=== PATIENT | female | born 1970 | race Caucasian/White ===

== ENCOUNTER → 2017-01-12 08:22 | Outpatient (CLI) | payer BC ==
--- NOTE | ~2017-01-12 | HEMODYNAMI ---
PATIENT:REANNA TOPETE MEDICAL RECORD: [id number] : 70 LOCATION:[facility] ADMISSION DATE: 01/12/17 Generatedon:01/12/201710:28 Patient name: REANNA TOPETE Patient #: [id number] SSN: : [birth year] Date of study: 01/12/2017 Page: Of Hemodynamic Procedure Report Patient Data Patient Demographics Procedure consent was obtained First Name: REANNA Gender: Female Last Name: YOSELYN : 1970 Middle Initial: L Age: 46 year(s) Patient #: [id number] Race: Unknown Additional ID: [id number] Contact details [address]: [address] [place] [address] State: [place] City: [place] Zip code: [address] Admission Admission Data Admission Date: 01/12/2017 Admission Time: 8:22 Procedure Procedure Types Cath Procedure Peripheral Cath Diagnostic Procedure Miscellaneous Procedure Description Procedure Date Procedure Date: 01/12/2017 Procedure Start Time: 9:41 Procedure Staff Name Function Jagdish Cedillo MD Performing Physician Jesse Bloom RT Scrub Jesse Bloom RT Monitor Procedure Data Cath Procedure Fluoroscopy Diagnostic fluoroscopy Total fluoroscopy Time: 1.6 time: 1.6 min min Diagnostic fluoroscopy Total fluoroscopy dose: 6 dose: 6 mGy mGy Contrast Material Contrast Material Type Amount (ml) Isovue 300 60 Hemodynamics Rest Pre Cath Intra NCS Post Cath Procedure Log Time Note 9:20:59 Jesse Bloom RT (R) (CV) sent for patient. Start room use. 9:21:07 Time tracking: Regular hours 9:21:16 Patient received from Other to IR Alert and oriented. Tansferred to table in Supine position. 9:21:18 Correct patient and procedure confirmed by team. 9:21:20 Signed procedure consent form obtained from patient. 9:21:21 - 9:21:22 Full Disclosure recording started 9:21:30 Pre-op teaching completed and patient verbalized understanding. 9:21:35 Patient pain scale 0/10 no pain. 9:35:58 Use device set PICC 9:36:01 Sterile Angiographic Pack opened to sterile field. 9:38:56 --------ALL STOP TIME OUT------ 9:38:56 Final Timeout: patient, procedure, and site verified with staff and physician. All members of the team are in agreement. 9:39:03 Sedation plan: Local Anesthetic Lidocaine 9:39:06 Sharps counted by scrub and verified by RMirellaNMirella 9:41:44 Procedure started. 10:24:41 Micropuncture VSI 4FR kit opened to sterile field. 10:24:48 Bag Decanter opened to sterile field. 10:25:11 Procedure ended.(Physican Out) 10:27:52 Fluoroscopy time 01.60 minutes. 10:27:58 Fluoroscopy dose: 6 mGy 10:27:58 Flurop Dose total: 6 10:28:02 Contrast amount:Isovue 300 60ml. 10:28:06 Insertion/operative site no bleeding no hematoma. 10:28:09 Procedure and supply charges have been captured, reviewed, submitted an d are correct. 10:28:10 Post procedure instruction explained to patient.Patient verbalizes understanding. 10:28:14 Report given to Other. 10:28:17 Patient transfered to Other with Ambulatory. Device Usage Item Name Manufacture Quantity Catalog [facility] Lot# / Number Charge Number Stock Stock Serial# Code Sterile Cardinal 1 [id number] Angiographic Health Pack Micropuncture VSI VASCULAR 1 [id number] 5 VSI 4FR kit SOLUTIONS Bag Decanter Microtek 1 [id number] 5 [employer]. Signature Audit [place] Stage Time Signature Unsigned Intra-Procedure 01/12/2017 Jesse 10:28:48 AM [place] RT (R) (CV) Signatures Monitor : Jesse Signature : [place] RT Date : Time : [id number] [place] [address]
== END | disposition home or self-care (01) ==
LOC: D.OPS 08:22 → D.RAD 10:00
DX: M79.605 Pain in left leg (principal)

== ENCOUNTER 2017-01-15 15:06 | Emergency (ER) | payer BC | END 2017-01-15 18:25 | disposition home or self-care (01) | LOC: D.ER 15:06 | DX: M54.16 Radiculopathy, lumbar region (principal); F17.200 Nicotine dependence, unspecified, uncomplicated ==